=== PATIENT | male | born 1975 | race Caucasian/White ===

== ENCOUNTER 2024-10-03 15:32 | Emergency (ER) | payer OTHER, SELFPAY ==
[2024-10-03 15:33] VITALS: BP 167/130; PULSE 106; RESP 18; TEMP 36.4; O2SAT 98; BMI 26.0
--- NOTE | 2024-10-03 16:20 | EX.ED.VIS.EY ---
HPI History of Present Illness Chief Complaint: Eye Problem Detail of Chief Complaint: Right eye irritated and red after trying on a pair of contact lenses. Informant: patient Onset/Context/Timing Location: Right Eye Onset: Today and Yesterday Timing: Continuous Current Severity: Mild Maximum Severity: Mild Associated Symptoms Associated Symptoms - Eyes: Drainage, Pain and Redness History of injury: No Visual correction: None Narrative Narrative: 49-year-old male no seen past medical history. Says his vision has been getting worse the last several years. 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 He went and bought a pair of contacts from some type of [employer] store and put them in his eye yesterday. He is unsure if he was unable to get the contact out or if it fell out. Today his eye is red and irritated. These were not specific for his eyes. They were not fitted for his eyes Prior similar symptoms: No Recent Illness/Hospitalization: No PFSH PFSH Allergy/AdvReac Type Severity Reaction Status Date / Time No Known Allergies Allergy Verified 10/03/24 15:33 Social History (Updated 10/03/24 @ 16:48 by Pauline Berg) housing: house Smoking Status: Current every day smoker tobacco type: cigarettes ROS ROS ED ROS Narrative Denies any recent intra Constitutional Constitutional ED: Denies chills or fever(s) Eyes Eyes: Denies blurry vision ENT ENT ED: Denies ear pain Cardiovascular Cardiovascular: Denies chest pain Respiratory/Chest Respiratory/Chest: Denies cough or dyspnea Gastrointestinal Gastrointestinal: Denies abdominal pain Genitourinary Genitourinary ED: Denies dysuria Musculoskeletal Musculoskeletal: Denies arthralgias Integumentary Denies abscess Neurologic Neurologic: Denies headache(s) Psychiatric Psychiatric: Denies anxiety Endocrine Endocrinology: Denies polydipsia Hematologic/Lymphatic Hematologic/Lymphatic: Denies easy bleeding, easy bruising or lymphadenopathy Allergic/Immunologic Allergic/Immunologic ED: Denies mouth swelling, tongue swelling or urticaria EXAM Physical Exam Narrative Exam Narrative: Well-appearing 49-year-old male. Vital signs are stable and his blood pressure is elevated at 167/130 that will be rechecked. H EENT exam pupils round reactive light. Right eye is red injected watering. Extraocular motions are intact. There is no upper or lower lid swelling. There is no preauricular lymphadenopathy. There is no proptosis. No orbital or periorbital cellulitis. Left eye is unremarkable. Normal in appearance. Neck nontender. No lymphadenopathy. Lungs clear to auscultation. Heart regular rhythm no murmur. Chest wall and ribs nontender. Abdomen soft nontender. Moving all 4 extremities. Nontender no edema. Neurologically patient awake alert. Answering questions following commands. Const Vital Signs: 10/03/24 15:33 Temperature 97.6 F L Temperature Source Temporal Pulse Rate 106 H Respiratory Rate 18 Blood Pressure 167/130 H Blood Pressure Mean 142 Pulse Ox 98 Oxygen Delivery Method Room Air Positive well nourished and well developed; Negative for obese, cachectic, contractures or unkempt General Appearance ED: well developed and NAD; Negative for unkempt, cachectic or contractures Nutritional Appearance: Negative for cachectic or obese HEENT HEENT Narrative: Right eye red, irritated. Watering. Afebrile motions are intact. Upper and lower lids are unremarkable. atraumatic; Negative for trauma or tenderness Neck no lymphadenopathy, supple and no JVD Resp normal respiratory effort, no retractions, no use of accessory muscles and clear to auscultation bilaterally Cardio regular rate, regular rhythm, S1 normal heart sound, S2 normal heart sound and no murmurs GI non-tender, non-distended and no masses Back/Spine no CVA tenderness General Back: Negative for CVA tenderness Extremity normal to inspection General Extremety ED: Negative for edema General Extremity: Negative for edema Neuro oriented x3, CN's II-XII intact bilaterally and moves all extremities Sensorium / Orientation: alert, oriented to person, oriented to place and oriented to time Motor Exam: strength 5/5 throughout Psych Appearance: Negative for unkempt Attitude: No agitated Mood & Affect: Negative for depressed or anxious Skin no wounds Lesions: no lesions Rashes: no rashes Trauma: Negative for abrasion or laceration MDM MDM MDM Narrative Medical decision making narrative: 49-year-old male right eyes injected and red patient tried to put contact in there that he just went and bought it was not fitted for his eye it was not a specific prescription for him. Slit-lamp examination be done of his eye. I was going back to do the slit-lamp examination at the patient's eye. Nurses notified me that he had eloped. He had not been here in an hour and he told them that he could not wait around. Left without being discharged. History & Record Review Discussion w/independent historian: Patient Discharge Plan Triage Chief Complaint: Eye Problem ED Provider: Jose Miguel Wise Dx/Rx/DC Orders Clinical Impression: Acute pain in right eye, Eloped from emergency department Primary Care Provider: Care Physician,No Primary Referrals: Care Physician,No Primary [Primary Care Provider] - Print Language: Kinyarwanda Disposition Disposition: Elopement
[2024-10-03] MEDS: Tetracaine 0.5% Ophthalmic Bottle 1 DRP RIGHT EYE (16:44)
[2024-10-03] MEDS: Fluorescein 1 MG STRIP 1 STRIP RIGHT EYE (16:45)
== END 2024-10-03 17:15 | disposition left against medical advice (07) ==
PROVIDERS: Emergency Provider Emergency Medicine; Visit Provider Emergency Medicine
DX: H57.11 Ocular pain, right eye (principal); F17.210 Nicotine dependence, cigarettes, uncomplicated
CPT/HCPCS: 99283